=== PATIENT | male | born 1955 | race Caucasian/White ===

== ENCOUNTER → 2023-12-19 17:24 | Outpatient (REF) | payer OTHER, SELFPAY | LOC: RAD 17:24 | PROVIDERS: ATTENDING PHYSICIAN Nurse Practitioner Family | DX: R03.0 Elevated blood-pressure reading, without diagnosis of hypertension (principal); R07.89 Other chest pain | CPT/HCPCS: 71046 ==

== ENCOUNTER 2023-12-28 22:03 | Emergency (ER) | payer OTHER, SELFPAY ==
[2023-12-28 22:04] VITALS: BP 161/85
--- NOTE | 2023-12-28 22:55 | ED.GENMED ---
History of Present Illness
General
Chief Complaint: Rectal Bleeding
Source: patient
Exam Limitations: none
Time Seen by Provider: 12/28/23 22:42
Travel History
Have you had any contact with someone who has COVID-19?: No
Do you have any symptoms of coronavirus? Fever > 100 degrees, chills, cough, shortness of breath, sore throat, loss of taste or smell, muscle aches, or headache?: No
History of Present Illness
History of Present Illness:
68-year-old male 2 to 3 days of rectal bleeding. Bright red. Essentially with wiping. Stools themselves have been normal possibly slightly harder. No abdominal pain no fever no other complaints. No thinners.
Past History
Past History
ED Past Medical History: HTN and Other (diverticulitis); Negative CVA, Hypercholesterolemia, IDDM or NIDDM
ED Past Surgical History: Gynecological (right testicular surgery)
Social History
Tobacco: Non-smoker
Employment: Employed
Family History
Family History: Other (nephrolithiasis)
Review of Systems
Review of Systems
All Other Systems: Not applicable
Constitutional: Denies fever
Phy Exam
Physical Exam
Physical Exam:
Physical GENERAL: Alert and oriented in no apparent distress
EYE: Orbits normal.
CARDIAC: Regular rate and rhythm .
LUNGS: No respiratory distress.
ABDOMEN: Soft, without focal tenderness or distention small inflamed hemorrhoid painful but not actively bleeding. Full rectal exam without blood on the tip of the finger. Patient show the napkins that he had put between his buttocks with a very
small amount of blood.
NEUROLOGICAL: Alert and oriented , grossly non-focal
SKIN: Warm and dry
PSYCH: Normal and appropriate interaction.
Course
Orders/Labs/Results
Orders:
Orders
12/28/23 23:11
Complete Blood Count/With Diff Urgent
Comprehensive Metabolic Panel Urgent
Abnormal Lab Results
12/28/23
23:11
RBC 4.36 L 10^6/uL
(4.70-6.10)
Hgb 12.9 L g/dL
(13.0-18.0)
Hct 37.4 L %
(39.0-52.0)
Glucose 143 H mg/dl
(70-99)
12/28/23 23:11
12/28/23 23:11
Vital Signs
Initial and Last Documented VS:
Initial Vital Signs
Temp Pulse Resp BP Pulse Ox
97.9 F 75 18 161/85 96
12/28/23 22:04 12/28/23 22:04 12/28/23 22:04 12/28/23 22:04 12/28/23 22:04
Last Documented Vital Signs
Temp Pulse Resp BP Pulse Ox
97.9 F 75 18 161/85 96
12/28/23 22:04 12/28/23 22:04 12/28/23 22:04 12/28/23 22:04 12/28/23 22:04
*Critical Care Note
Total Time (30-74mins, 75-104mins- exclusive of procedures): Not Applicable
Update Note
Update Note:
Labs are stable. Patient is rocksolid stable. Tenderness to a hemorrhoid and inflamed appearing possible fissure. Discharged to follow-up
ED Attending Note
-
Portions of this chart may have been created with voice recognition software.� Occasional wrong word or��sound alike� substitutions may have occurred due to the inherent limitations of voice recognition software.
Discharge Plan
Departure
Patient Disposition: Home (Routine Discharge)
Date of Disposition: 12/29/23
Time of Disposition: 00:06
Patient with high blood pressure during this ER visit?: Yes
Discharge Problem:
Lower GI bleed, Bleeding hemorrhoid versus fissure
Instructions: Hemorrhoids (DC), Gastrointestinal Bleeding (DC), Anal Fissure (DC)
Prescriptions:
New
hydrocortisone [Anusol-HC] 2.5 % cream with perineal applicator
1 applic [place] DAILY Qty: 30 0RF
No Action
lisinopril 5 mg tablet
5 mg PO DAILY Qty: 30 0RF
amlodipine 2.5 mg tablet
2.5 mg PO DAILY
acetaminophen 500 mg Tablet
1,000 mg PO BID@0800,1500
cyanocobalamin (vitamin B-12) [Vitamin B-12] 500 mcg Tablet
500 mcg PO DAILY
ibuprofen 200 mg Tablet
600 mg PO BID@1200,1900
omeprazole 20 mg capsule,delayed release(DR/EC)
20 mg PO DAILY
rosuvastatin 10 mg tablet
10 mg PO QPM
Referrals:
Ez Hanosn MD [Active] - Follow up in 5-7 days
Regis Mccann CRNP [Family Provider] -
Activity Restrictions/Additional Instructions:
Apply cream daily
Follow-up closely with Dr. Hanson
Return sooner with increased bleeding increased pain or any other concerning symptoms
Interventions
Interventions:
*Risk Screen - Suicide Last Done: 12/28/23 22:04
*General Assessment Last Done: 12/28/23 22:04
*Neglect/Abuse Screening Last Done: 12/28/23 22:04
ED- Fall Risk Assessment Last Done: 12/28/23 23:35
*ED COVID-19 Vaccine History Last Done: 12/28/23 23:35
HU-Egytlh-Faawgcqyob Assessment Last Done: 12/28/23 23:19
ED- Cardiac Assessment Last Done: 12/28/23 23:19
ED- Pulmonary Assessment Last Done: 12/28/23 23:19
[2023-12-28 23:20] LABS: % Basophils 0.5 % (0-2); % Eosinophils 2.9 % (0-6); % Immature Granulocytes 0.1 % (0-0.5); % Lymphocytes 29.6 % (20.5-51.1); % Monocytes 5.6 % (1.7-9.3); % Neutrophils 61.3 % (42.2-75.2); Absolute Eosinophils 0.3 10^3/uL (0-0.7); Absolute Lymphocytes 2.6 10^3/uL (1.2-3.4); Absolute Monocytes 0.5 10^3/uL (0.1-0.6); Absolute Neutrophils 5.3 10^3/uL (1.4-6.5); Hematocrit 37.4 % (39.0-52.0); Hemoglobin 12.9 g/dL (13.0-18.0); Mean Corp Hgb Conc. 34.5 g/dL (33.0-37.0); Mean Corpuscular Hgb 29.6 pg (27.0-31.0); Mean Corpuscular Volume 85.8 fL (80.0-94.0); Mean Platelet Volume 9.7 fL (7.4-10.4); Nucleated Red Blood Cells % 0 % (-); Platelet Count 209 10^3/uL (130-400); Red Blood Cell Count 4.36 10^6/uL (4.70-6.10); Red Cell Dist. Width 13.2 % (11.5-14.5); White Blood Cell Count 8.6 10^3/uL (4.8-10.8)
[2023-12-28 23:47] LABS: ALT (SGPT) 19 U/L (0-50); AST (SGOT) 27 U/L (17-59); Alkaline Phosphatase 60 U/L (38-126); Blood Urea Nitrogen 20 mg/dl (9-20); Calcium 8.8 mg/dl (8.4-10.2); Carbon Dioxide 24 mmol/L (22-30); Chloride 105 mmol/L (98-107); Glucose 143 mg/dl (70-99); Potassium 3.9 mmol/L (3.5-5.1); Sodium 135 mmol/L (135-145); Total Bilirubin 0.5 mg/dl (0.2-1.3); Total Protein 6.6 g/dl (6.3-8.2); eGFR > 60.00
[2023-12-29 00:23] VITALS: BP 128/70
== END 2023-12-29 00:23 | disposition home or self-care (01) ==
LOC: EMR 22:03
PROVIDERS: EMERGENCY PHYSICIAN Emergency Medicine; FAMILY PHYSICIAN Nurse Practitioner Family
DX: K92.2 Gastrointestinal hemorrhage, unspecified (principal); K64.9 Unspecified hemorrhoids; I10 Essential (primary) hypertension
CPT/HCPCS: 99283; 80053; 85025

== ENCOUNTER → 2024-01-03 07:15 | Outpatient (REF) | payer OTHER, SELFPAY | LOC: RCS 07:15 | PROVIDERS: ATTENDING PHYSICIAN Nurse Practitioner Family | DX: R03.0 Elevated blood-pressure reading, without diagnosis of hypertension (principal); R07.89 Other chest pain | CPT/HCPCS: 93017 ==

== ENCOUNTER → 2024-01-12 08:20 | Outpatient (REF) | payer OTHER, SELFPAY | LOC: PAVMRI 08:20 | PROVIDERS: ATTENDING PHYSICIAN Student in an Organized Health Care Education/Training Program | DX: R29.898 Other symptoms and signs involving the musculoskeletal system (principal); M54.50 Low back pain, unspecified | CPT/HCPCS: 72148 ==

== ENCOUNTER 2024-03-11 11:38 | Emergency (ER) | payer OTHER, SELFPAY ==
[2024-03-11 11:39] VITALS: BP 149/79
[2024-03-11 12:08] VITALS: BMI 31.4
[2024-03-11 12:13] VITALS: BP 138/85
[2024-03-11] MEDS: NSS 1000 IV (12:20)
[2024-03-11] MEDS: TORADOL 15 MG IV (12:20)
--- NOTE | 2024-03-11 12:21 | ED.GENMED ---
History of Present Illness
General
Chief Complaint: Abdominal Pain
Source: patient, records and previous hospital records
Exam Limitations: none
Time Seen by Provider: 03/11/24 11:45
Travel History
Have you had any contact with someone who has COVID-19?: No
Do you have any symptoms of coronavirus? Fever > 100 degrees, chills, cough, shortness of breath, sore throat, loss of taste or smell, muscle aches, or headache?: No
History of Present Illness
History of Present Illness:
68-year-old male presents with left lower abdominal pain and urinary frequency onset 2 days ago tells me his symptoms are consistent with his prior diverticulitis he said 4-5 episodes previously told by Dr. Hanson he may need surgery if he has
another recurrence, had a colonoscopy in the last year had a polyp removed he is also been constipated, but also stool softeners, no antibiotic use, he is being worked up for neuropathy by his PCP multiple tasks have been obtained with no definitive
diagnosis he is on gabapentin for that does not appear to be on any blood thinners, is a nondrinker non-smoker
Past History
Past History
ED Past Medical History: HTN and Other (diverticulitis); Negative CVA, Hypercholesterolemia, IDDM or NIDDM
Social History
Tobacco: Non-smoker
Employment: Employed
Family History
Family History: Other (nephrolithiasis)
Phy Exam
Physical Exam
Physical Exam:
Physical Exam
General: no apparent distress, not acutely ill
Neck: No jaundice
Heart: s1/s2 regular rate and rhythm, no murmur. equal radial pulses.
Lungs: no acute respiratory distress. clear bilaterally
Abdomen: Soft mild left lower abdominal pain
Neuro: alert and oriented. no focal neurological deficits
Skin: no rash
Psychiatric: well kept. interactive and cooperative
Extremities: no edema. Lower extremities are warm well-perfused
Course
Orders/Labs/Results
Orders:
Orders
03/11/24 12:13
CT Abd/Pel (IV only)-DH only Urgent
Comment:
Reason For Exam: llq pain
03/11/24 12:14
0.9% Sodium Chloride 1000 ml [Nss] 1,000 ml IV BOLUS
Ketorolac [Toradol] 15 mg IV NOW STA
03/11/24 12:15
Complete Blood Count/With Diff Urgent
Comprehensive Metabolic Panel Urgent
Urinalysis Reflex To Culture Urgent
Date Specimen was Collected: 03/11/24
Time Specimen was Collected: 12:15
03/11/24 13:49
Amoxicillin 875 mg/Clav 125 mg [Augmentin 875 mg/125 mg] 1 tablet PO NOW STA
Abnormal Lab Results
03/11/24
12:15
WBC 11.6 H 10^3/uL
(4.8-10.8)
RBC 4.56 L 10^6/uL
(4.70-6.10)
Hct 38.3 L %
(39.0-52.0)
Abs Immat Gran (auto) 0.1 H 10^3/uL
(0-0.05)
Absolute Neuts (auto) 8.9 H 10^3/uL
(1.4-6.5)
Absolute Monos (auto) 0.8 H 10^3/uL
(0.1-0.6)
Neutrophils % 76.3 H %
(42.2-75.2)
Lymphocytes % 15.4 L %
(20.5-51.1)
Glucose 130 H mg/dl
(70-99)
03/11/24 12:15
03/11/24 12:15
Vital Signs
Initial and Last Documented VS:
Initial Vital Signs
Temp Pulse Resp BP Pulse Ox
98.7 F 85 18 149/79 98
03/11/24 11:39 03/11/24 11:39 03/11/24 11:39 03/11/24 11:39 03/11/24 11:39
Last Documented Vital Signs
Temp Pulse Resp BP Pulse Ox
98.7 F 85 18 138/85 94
03/11/24 11:39 03/11/24 11:39 03/11/24 11:39 03/11/24 12:13 03/11/24 12:30
MDM/Problems Addressed
Differential Diagnosis Includes:
Diverticulitis colitis UTI renal stone
MDM/Problems Addressed:
Left lower quadrant pain
Chronic conditions affecting care:
Diverticulitis
Acute Exacerbation and/or Progression of Chronic Illness:
Diverticulitis
*Radiology
Radiology exam reviewed: preliminary read by ED provider
*Pulse Oximetry
Patient hypoxic: no
*Machine Sorter Interpretation
Rate: Machine Sorter- N/A
*Critical Care Note
Total Time (30-74mins, 75-104mins- exclusive of procedures): Not Applicable
Data Reviewed
Review of Other/Old Records Reveals: Labs and Records
Source: patient and records
Update Note
Update Note:
1:48 PM patient appears well CAT scan noted, appears to be candidate for outpatient follow-up start on antibiotics
Is having what sounds like some subacute to chronic neuropathy, will hold on quinolones, go with a penicillin
ED Attending Note
-
Portions of this chart may have been created with voice recognition software.� Occasional wrong word or��sound alike� substitutions may have occurred due to the inherent limitations of voice recognition software.
Discharge Plan
Departure
Patient Disposition: Home (Routine Discharge)
Date of Disposition: 03/11/24
Time of Disposition: 13:50
Patient with high blood pressure during this ER visit?: No
Condition: Good
Covid-19: Not Applicable
Discharge Problem:
Acute diverticulitis
Instructions: Diverticulitis (DC)
Prescriptions:
New
amoxicillin-pot clavulanate 875-125 mg tablet
1 tab PO BID Qty: 20 0RF
No Action
lisinopril 5 mg tablet
5 mg PO DAILY Qty: 30 0RF
amlodipine 2.5 mg tablet
2.5 mg PO DAILY
acetaminophen 500 mg Tablet
1,000 mg PO BID@0800,1500
cyanocobalamin (vitamin B-12) [Vitamin B-12] 500 mcg Tablet
500 mcg PO DAILY
ibuprofen 200 mg Tablet
600 mg PO BID@1200,1900
omeprazole 20 mg capsule,delayed release(DR/EC)
20 mg PO DAILY
rosuvastatin 10 mg tablet
10 mg PO QPM
hydrocortisone [Anusol-HC] 2.5 % cream with perineal applicator
1 applic [place] DAILY Qty: 30 0RF
Referrals:
Ez Hanson MD [Active] - Next open appointment
Regis Mccann CRNP [Family Provider] -
Activity Restrictions/Additional Instructions:
[place] diet nothing fatty or spicy antibiotics as prescribed with Dr. Hanson
Return to the ER for worsening symptoms
Interventions
Interventions:
*Risk Screen - Suicide Last Done: 03/11/24 11:39
*General Assessment Last Done: 03/11/24 11:39
*Neglect/Abuse Screening Last Done: 03/11/24 11:39
ED- Fall Risk Assessment Last Done: 03/11/24 12:08
*ED COVID-19 Vaccine History Last Done: 03/11/24 11:39
QI-Fgnxup-Cftvgdxuzo Assessment Last Done: 03/11/24 12:08
Discharge Date and Time
Print Language: QATARI
[2024-03-11 12:29] LABS: % Basophils 0.5 % (0-2); % Eosinophils 0.9 % (0-6); % Immature Granulocytes 0.4 % (0-0.5); % Lymphocytes 15.4 % (20.5-51.1); % Monocytes 6.5 % (1.7-9.3); % Neutrophils 76.3 % (42.2-75.2); Absolute Basophils 0.1 10^3/uL (0-0.2); Absolute Eosinophils 0.1 10^3/uL (0-0.7); Absolute Immature Granulocytes 0.1 10^3/uL (0-0.05); Absolute Lymphocytes 1.8 10^3/uL (1.2-3.4); Absolute Monocytes 0.8 10^3/uL (0.1-0.6); Absolute Neutrophils 8.9 10^3/uL (1.4-6.5); Hematocrit 38.3 % (39.0-52.0); Hemoglobin 13.6 g/dL (13.0-18.0); Mean Corp Hgb Conc. 35.5 g/dL (33.0-37.0); Mean Corpuscular Hgb 29.8 pg (27.0-31.0); Mean Platelet Volume 9.7 fL (7.4-10.4); Nucleated Red Blood Cells % 0 % (-); Platelet Count 214 10^3/uL (130-400); Red Blood Cell Count 4.56 10^6/uL (4.70-6.10); Red Cell Dist. Width 12.6 % (11.5-14.5); White Blood Cell Count 11.6 10^3/uL (4.8-10.8)
[2024-03-11 12:50] LABS: ALT (SGPT) 11 U/L (0-50); AST (SGOT) 20 U/L (17-59); Albumin 4.5 g/dl (3.5-5.0); Alkaline Phosphatase 65 U/L (38-126); Blood Urea Nitrogen 14 mg/dl (9-20); Calcium 9.3 mg/dl (8.4-10.2); Carbon Dioxide 24 mmol/L (22-30); Chloride 104 mmol/L (98-107); Estimated Creatinine Clearance 109 ml/min; Glucose 130 mg/dl (70-99); Potassium 4.1 mmol/L (3.5-5.1); Sodium 136 mmol/L (135-145); Total Bilirubin 0.8 mg/dl (0.2-1.3); eGFR > 60.00
[2024-03-11 13:00] VITALS: BP 132/75
[2024-03-11 13:05] LABS: Urine Albumin Negative (Neg - Trace); Urine Bilirubin Negative (Negative); Urine Character Clear (Clear); Urine Color Yellow; Urine Glucose Negative (Negative); Urine Ketone Negative (Negative); Urine Leukocyte Negative (Negative); Urine Nitrite Negative (Negative); Urine Occult Blood Negative (Negative); Urine Urobilinogen Negative (Neg - 1+)
[2024-03-11] MEDS: AUGMENTIN 875 MG/125 MG 1 TABLET PO (13:52)
== END 2024-03-11 13:59 | disposition home or self-care (01) ==
LOC: EMR 11:38
PROVIDERS: EMERGENCY PHYSICIAN Emergency Medicine; FAMILY PHYSICIAN Nurse Practitioner Family
DX: K57.32 Diverticulitis of large intestine without perforation or abscess without bleeding (principal); R35.0 Frequency of micturition; K59.00 Constipation, unspecified; I10 Essential (primary) hypertension
CPT/HCPCS: 99285; 74177; 80053; 81003; 85025; Q9967

== ENCOUNTER 2024-06-14 11:14 | Inpatient (IN) | payer OTHER, MEDICARE, SELFPAY ==
[2024-06-06 10:24] LABS: % Basophils 0.7 % (0-2); % Eosinophils 3.2 % (0-6); % Immature Granulocytes 0.3 % (0-0.5); % Lymphocytes 29.4 % (20.5-51.1); % Monocytes 6.9 % (1.7-9.3); % Neutrophils 59.5 % (42.2-75.2); Absolute Basophils 0.1 10^3/uL (0-0.2); Absolute Eosinophils 0.2 10^3/uL (0-0.7); Absolute Monocytes 0.5 10^3/uL (0.1-0.6); Absolute Neutrophils 4.1 10^3/uL (1.4-6.5); Hematocrit 37.7 % (39.0-52.0); Hemoglobin 13.1 g/dL (13.0-18.0); Mean Corp Hgb Conc. 34.7 g/dL (33.0-37.0); Mean Corpuscular Hgb 29.8 pg (27.0-31.0); Mean Corpuscular Volume 85.9 fL (80.0-94.0); Mean Platelet Volume 10.1 fL (7.4-10.4); Nucleated Red Blood Cells % 0 % (-); Platelet Count 197 10^3/uL (130-400); Red Blood Cell Count 4.39 10^6/uL (4.70-6.10); Red Cell Dist. Width 12.7 % (11.5-14.5); White Blood Cell Count 6.9 10^3/uL (4.8-10.8)
[2024-06-06 10:33] VITALS: BMI 32.1
[2024-06-06 10:42] LABS: INR 1.02; PT 13.4 Sec (11.4-14.6)
[2024-06-06 10:43] LABS: APTT 29.4 Sec (23.4-35.0)
[2024-06-06 11:24] LABS: ALT (SGPT) 14 U/L (0-50); AST (SGOT) 23 U/L (17-59); Albumin 4.6 g/dl (3.5-5.0); Alkaline Phosphatase 57 U/L (38-126); Blood Urea Nitrogen 16 mg/dl (9-20); Calcium 9.3 mg/dl (8.4-10.2); Carbon Dioxide 25 mmol/L (22-30); Chloride 104 mmol/L (98-107); Estimated Creatinine Clearance 97 ml/min; Glucose 90 mg/dl (70-99); Potassium 4.7 mmol/L (3.5-5.1); Sodium 138 mmol/L (135-145); Total Bilirubin 0.7 mg/dl (0.2-1.3); Total Protein 6.9 g/dl (6.3-8.2); eGFR > 60.00
[2024-06-06 12:06] LABS: Glycohemoglobin (HgbA1c) 5.6 % (4.0-5.6)
[2024-06-14] VITALS (13 sets, daily range): BP systolic 134–151; BP diastolic 71–87; BMI 32.1
[2024-06-14] MEDS: TYLENOL 1000 MG PO (11:45)
[2024-06-14] MEDS: HEPARIN 5000 UNITS SC (11:45)
[2024-06-14] MEDS: ENTEREG 12 MG PO (11:45)
[2024-06-14] MEDS: NORMOSOL-R 1000 IV (11:46)
--- NOTE | 2024-06-14 16:23 | W.IMMPOSTOP ---
Surgical Immed Post Op Note
-
Primary Surgeon: Frankie Hanson MD
Polls Or Surveys Interviewer: RIDDHI Islas
Pre-op Diagnosis: Recurrent sigmoid diverticulitis, umbilical hernia
Post-op Diagnosis: Same
Procedure Performed: Robotic sigmoid colectomy and primary repair of hernia
Anesthesia Type: GET
Specimen / Cultures: Sigmoid colon (suture is proximal)
Estimated Blood Loss: 15cc
Complications: None
Operative Findings: Chronic sigmoid diverticulitis
28mm EEA intracorporeal anastomosis
Normal leak test
Primary repair of umbilical hernia
Patient's updated.
[2024-06-14 16:37] LABS: Glucose - Point of Care 135 mg/dl (70-99)
[2024-06-14] MEDS: TORADOL 15 MG IV ×2 (17:49→23:01)
--- NOTE | 2024-06-14 18:24 | PTCARENOTE ---
Received patient form PACU via bed in stable condition. Patient very sleepy but arousable. Urinary Catheter in place draining clear yellow urine. 5 abd lap sites CDI with surgical adhesive. Call joseph in reach.
[2024-06-14] MEDS: TYLENOL 650 MG PO (20:16)
[2024-06-14] MEDS: CRESTOR 10 MG PO (21:21)
[2024-06-14] MEDS: NEURONTIN 300 MG PO (21:21)
[2024-06-15] MEDS: NORMOSOL-R IV (00:54)
[2024-06-15] MEDS: TYLENOL PO ×3 (00:54→23:40)
[2024-06-15] MEDS: NORMOSOL-R 1000 IV ×3 (02:24→23:35)
[2024-06-15 03:47] VITALS: BP 136/80
[2024-06-15] MEDS: TORADOL 15 MG IV ×4 (04:52→23:35)
[2024-06-15 05:19] VITALS: BMI 30.1
[2024-06-15 07:33] LABS: % Basophils 0.1 % (0-2); % Eosinophils 0.1 % (0-6); % Immature Granulocytes 0.4 % (0-0.5); % Lymphocytes 8.1 % (20.5-51.1); % Monocytes 7.4 % (1.7-9.3); % Neutrophils 83.9 % (42.2-75.2); Absolute Lymphocytes 0.9 10^3/uL (1.2-3.4); Absolute Monocytes 0.8 10^3/uL (0.1-0.6); Hematocrit 34.5 % (39.0-52.0); Hemoglobin 12.3 g/dL (13.0-18.0); Mean Corp Hgb Conc. 35.7 g/dL (33.0-37.0); Mean Corpuscular Hgb 30.3 pg (27.0-31.0); Mean Platelet Volume 10.2 fL (7.4-10.4); Nucleated Red Blood Cells % 0.2 % (-); Platelet Count 196 10^3/uL (130-400); Red Blood Cell Count 4.06 10^6/uL (4.70-6.10); Red Cell Dist. Width 12.9 % (11.5-14.5); White Blood Cell Count 10.7 10^3/uL (4.8-10.8)
[2024-06-15 07:40] VITALS: BP 134/83
[2024-06-15 07:49] LABS: Blood Urea Nitrogen 15 mg/dl (9-20); Calcium 8.2 mg/dl (8.4-10.2); Carbon Dioxide 25 mmol/L (22-30); Chloride 103 mmol/L (98-107); Estimated Creatinine Clearance 84 ml/min; Glucose 142 mg/dl (70-99); Potassium 4.6 mmol/L (3.5-5.1); Sodium 135 mmol/L (135-145); eGFR > 60.00
[2024-06-15] MEDS: TYLENOL 650 MG PO ×4 (08:07→19:47)
[2024-06-15] MEDS: PROTONIX 40 MG PO (08:08)
[2024-06-15] MEDS: ZESTRIL 5 MG PO (08:08)
[2024-06-15] MEDS: NORVASC 2.5 MG PO (08:08)
[2024-06-15] MEDS: ENTEREG 12 MG PO ×2 (08:08→19:47)
--- NOTE | 2024-06-15 11:40 | CM ---
Reviewed the chart notes and spoke with the patient at the bedside. The patient resides with his spouse in a one story ira with one step to enter. The patient reports on DME is a BP machine. The patient reports no VN or SNF in past. The patient
confirmed his pharmacy of choice is the [facility]. CM continues to be available to patient/family and is monitoring medical plan for needs at discharge.
Plan: Discharge to home with no anticipated needs.
[2024-06-15 11:49] VITALS: BP 102/62
--- NOTE | 2024-06-15 12:10 | W.PN.GS2 ---
Addendum entered and electronically signed by Freddy Ibanez MD 06/15/24 14:50:
Patient seen and examined this a.m. with nurse practitioner. Agree with documented progress note. This is a delayed entry.
Patient complains of significant cramping left side of abdomen postoperatively. A bit more this morning than initially overnight. No nausea. Not much appetite. Still feels a bit sleepy from anesthesia/surgery.
AFVSS
ABD: Protuberant and a bit distended, some tympany. Mild tenderness on palpation. Surgical sites with glue dressings.
A/P: POD #1 status post RAL sigmoid colectomy
Holding diet on sips of clears and ice chips as a bit distended on exam
Continue routine postoperative supportive care
Original Note:
Today's Communication / Plan
-
NPO with sips of clears
Assessment / Plan
-
69 yo male with a h/o recurrent sigmoid diverticulitis who presented for operative management and is POD #1 robotic sigmoid colectomy with primary UHR
AFVSS
Labs stable post operatively
Await ROBF
--NPO with sips of clears
--Analgesics scheduled and prn
--OOB/Ambulate
--SCDs and lovenox for VTE ppx
--C/W IVF while NPO
--C/W home meds
Subjective Data
-
Date of Service: June 15, 2024
Patient seen and examined at bedside with Dr. Ibanez. Having cramping pains with no passage of flatus as of yet. Denies n/v.
Objective Data
-
Intake and Output
06/14/24 06/15/24 06/16/24
06:59 06:59 06:59
Intake Total 2260 / 2260
Output Total 975 / 975
Balance 1285 / 1285
Intake:
Oral fluids 960 / 960
IV fluids (Total) 1300 / 1300
normosol 100 / 100
Output:
Urine, Lane 975 / 975
Vital Signs
Temp Pulse Resp BP Pulse Ox
97.6 F 60 17 102/62 97
06/15/24 11:49 06/15/24 11:49 06/15/24 11:49 06/15/24 11:49 06/15/24 11:49
Lab Results
06/15/24 07:09
06/15/24 07:09
Calcium 8.2 mg/dl (8.4-10.2) L 06/15/24 07:09
Total Bilirubin 0.7 mg/dl (0.2-1.3) 06/06/24 08:57
AST 23 U/L (17-59) 06/06/24 08:57
ALT 14 U/L (0-50) 06/06/24 08:57
Alkaline Phosphatase 57 U/L (38-126) 06/06/24 08:57
Total Protein 6.9 g/dl (6.3-8.2) 06/06/24 08:57
Albumin 4.6 g/dl (3.5-5.0) 06/06/24 08:57
Physical Exam
-
NAD
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
Incisions well approximated with intact glue
Lane with clear, yellow urine
[2024-06-15 16:05] VITALS: BP 120/46
[2024-06-15] MEDS: LOVENOX 40 MG SC (17:01)
[2024-06-15] MEDS: DILAUDID 0.5 MG IV (20:23)
[2024-06-15] MEDS: MYLICON 80 MG PO (21:16)
[2024-06-15] MEDS: CRESTOR 10 MG PO (21:46)
[2024-06-15] MEDS: NEURONTIN 300 MG PO (21:46)
[2024-06-15 23:00] VITALS: BP 158/85
[2024-06-16] MEDS: MYLICON 80 MG PO (00:08)
[2024-06-16] MEDS: TYLENOL PO (04:00)
[2024-06-16] MEDS: TORADOL 15 MG IV ×4 (05:20→22:06)
[2024-06-16 06:19] VITALS: BMI 31.8
--- NOTE | 2024-06-16 06:30 | PTCARENOTE ---
dotson removed @ 0530 voided small amount of urine @8780. Bmx x2 this shift.
[2024-06-16] MEDS: ENTEREG 12 MG PO (07:13)
[2024-06-16] MEDS: TYLENOL 650 MG PO ×4 (07:13→20:38)
[2024-06-16] MEDS: PROTONIX 40 MG PO (07:13)
[2024-06-16] MEDS: ZESTRIL 5 MG PO (07:13)
[2024-06-16] MEDS: NORVASC 2.5 MG PO (07:17)
[2024-06-16 07:18] VITALS: BP 145/74
[2024-06-16 08:26] LABS: Hematocrit 35.3 % (39.0-52.0); Hemoglobin 12.1 g/dL (13.0-18.0); Mean Corp Hgb Conc. 34.3 g/dL (33.0-37.0); Mean Corpuscular Hgb 29.7 pg (27.0-31.0); Mean Corpuscular Volume 86.7 fL (80.0-94.0); Mean Platelet Volume 10.2 fL (7.4-10.4); Platelet Count 198 10^3/uL (130-400); Red Blood Cell Count 4.07 10^6/uL (4.70-6.10); Red Cell Dist. Width 12.9 % (11.5-14.5); White Blood Cell Count 10.7 10^3/uL (4.8-10.8)
--- NOTE | 2024-06-16 08:43 | W.PN.GS2 ---
Addendum entered and electronically signed by Freddy Ibanez MD 06/16/24 09:05:
Patient seen and examined with nurse practitioner. Agree with documented progress note
He appears much more comfortable today
Mild left-sided gas cramps
Passing flatus and multiple loose bowel movements
Appetite returning, nausea subsided
AFVSS
ABD: Soft, nondistended, minimal tenderness at incision sites, incisions with glue dressings, no erythema, no drainage, no open wounds
Assessment/plan: POD #2 s/p robotic sigmoidectomy
Clear liquids and advance cautiously as tolerated
Multimodal analgesics
Home meds
Stop Entereg given return of GI function
Original Note:
Today's Communication / Plan
-
Trial of clear liquids then ADAT
Assessment / Plan
-
69 yo male with a h/o recurrent sigmoid diverticulitis who presented for operative management and is POD #2 robotic sigmoid colectomy with primary UHR
AFVSS
Labs stable post operatively, BMP pending for today
Mild acute anemia secondary to hemodilution/expected intraop losses. Stable from previous.
Bowel function returning with +flatus/BM's
--ADAT, start with clears
--Analgesics scheduled and prn. Tylenol, Toradol, Tramadol, dilaudid
--OOB/Ambulate
--SCDs and lovenox for VTE ppx
--C/C IVF
--C/W home meds
Subjective Data
-
Date of Service: June 16, 2024
Patient seen and examined at bedside with Dr. Ibanez. OOB to chair. Notes he feels much better today. Cramping pain resolved overnight when he was able to pass quite a bit of flatus and some loose stools. Denies significant pain. Voiding without
difficulty since removal of dotson.
Objective Data
-
Intake and Output
06/15/24 06/16/24 06/17/24
06:59 06:59 06:59
Intake Total 2260 / 2260 1610 / 1610
Output Total 975 / 975 2300 / 2300
Balance 1285 / 1285 -690 / -690
Intake:
Oral fluids 960 / 960 360 / 360
IV fluids (Total) 1300 / 1300 1250 / 1250
normosol 100 / 100
Output:
Urine, [place] 975 / 975 2300 / 2300
Other:
Number of approximated SMALL 1
amounts of urine
Number of approximated MODERATE 1
amounts of urine
Number of unmeasured liquid
stools
Rectum 1
Vital Signs
Temp Pulse Resp BP Pulse Ox
97.9 F 66 16 145/74 96
06/16/24 07:18 06/16/24 07:18 06/16/24 07:18 06/16/24 07:18 06/16/24 07:18
Lab Results
06/16/24 06:40
Calcium 8.2 mg/dl (8.4-10.2) L 06/15/24 07:09
Total Bilirubin 0.7 mg/dl (0.2-1.3) 06/06/24 08:57
AST 23 U/L (17-59) 06/06/24 08:57
ALT 14 U/L (0-50) 06/06/24 08:57
Alkaline Phosphatase 57 U/L (38-126) 06/06/24 08:57
Total Protein 6.9 g/dl (6.3-8.2) 06/06/24 08:57
Albumin 4.6 g/dl (3.5-5.0) 06/06/24 08:57
Physical Exam
-
NAD
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
Incisions well approximated with intact glue
[2024-06-16] MEDS: NORMOSOL-R IV (08:46)
[2024-06-16 08:57] LABS: Blood Urea Nitrogen 18 mg/dl (9-20); Calcium 8.5 mg/dl (8.4-10.2); Carbon Dioxide 25 mmol/L (22-30); Chloride 105 mmol/L (98-107); Estimated Creatinine Clearance 96 ml/min; Glucose 94 mg/dl (70-99); Sodium 136 mmol/L (135-145); eGFR > 60.00
[2024-06-16 15:02] VITALS: BP 124/74
[2024-06-16] MEDS: LOVENOX 40 MG SC (17:31)
[2024-06-16] MEDS: CRESTOR 10 MG PO (22:06)
[2024-06-16] MEDS: NEURONTIN 300 MG PO (22:06)
[2024-06-16 23:00] VITALS: BP 122/77
[2024-06-17] MEDS: TYLENOL 650 MG PO ×3 (00:07→08:28)
[2024-06-17] MEDS: TORADOL 15 MG IV (05:01)
[2024-06-17 06:29] VITALS: BMI 31.7
[2024-06-17 07:32] VITALS: BP 139/75
[2024-06-17] MEDS: PROTONIX 40 MG PO (08:28)
[2024-06-17] MEDS: ZESTRIL 5 MG PO (08:29)
[2024-06-17] MEDS: NORVASC 2.5 MG PO (08:29)
--- NOTE | 2024-06-17 08:52 | W.PN.CRS1 ---
Today's Communication / Plan
-
Ok for discharge.
I reviewed diet, meds, activity, wound care and follow-up.
Final path pending.
Assessment/Plan
-
POD#3 s/p robotic sigmoidectomy for recurrent diverticulitis, and umbilical hernia repair
Progressing well.
Operative findings reviewed.
Subjective Data
Procedure
06/14/24 Robotic sigmoidectomy and umbilical hernia repair
Subjective Data
Date of Service: June 17, 2024
No complaints. He is tolerating a low residue diet and his bowels are functioning. Minimal discomfort.
Objective Data
-
Vital Signs
Temp Pulse Resp BP Pulse Ox
97.8 F 52 16 139/75 95
06/17/24 07:32 06/17/24 07:32 06/17/24 07:32 06/17/24 07:32 06/17/24 07:32
Intake & Output
06/16/24 06/17/24 06/18/24
06:59 06:59 06:59
Intake Total 1610 / 1610 2160 / 2160
Output Total 2300 / 2300
Balance -690 / -690 2160 / 2160
Intake:
Oral fluids 360 / 360 2160 / 2160
IV fluids (Total) 1250 / 1250
Output:
Urine, Lane 2300 / 2300
Other:
Number of approximated SMALL 1
amounts of urine
Number of approximated MODERATE 1 2
amounts of urine
Number of unmeasured liquid
stools
Rectum 1
Lab Results
06/16/24 06:40
06/16/24 06:40
Physical Exam
-
General: No Acute Distress
Abdomen: Soft, Non Distended and Non Tender
Extremities: No Calf Tenderness
Incision: Clear, Dry, Intact
--- NOTE | 2024-06-17 09:03 | W.DS.TRANS ---
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
-
Discharge Instructions:
Sleep Apnea Risk Intermediate
Discharge Diagnosis/Procedures Robotic sigmoid resection and umbilical hernia
repair
Diet Low Residue
Activity As tolerated,No strenuous activity
Additional Activity No heavy lifting (<20lbs) for 4 weeks
Driving Restrictions No driving for 1 week
Bathing Restrictions OK to Shower
Wound Care the glue will fall off typically in 2-3 weeks
Instructions:
Stand-Alone Forms:
Changes to Home Medications: No
Discharge Medications:
DC Medications w/original date entered in Jam[facility]
lisinopril 5 mg tablet 5 mg PO DAILY #30 tabs 11/10/23
acetaminophen 500 mg tablet 1,000 mg PO PRN PRN pain 12/28/23
amlodipine 2.5 mg tablet 2.5 mg PO DAILY Blood Pressure 12/28/23
cyanocobalamin (vitamin B-12) 500 mcg tablet (Vitamin B-12) 500 mcg PO DAILY Supplement 12/28/23
ibuprofen 200 mg tablet 600 mg PO PRN PRN pain 12/28/23
omeprazole 20 mg capsule,delayed release 20 mg PO DAILY Gastrointestinal Issue 12/28/23
rosuvastatin 10 mg tablet 10 mg PO HS High Cholesterol 12/28/23
hydrocortisone 2.5 % topical cream with perineal applicator (Anusol-HC) 1 applic [place] DAILY #30 grams 12/29/23
gabapentin 300 mg capsule 300 mg PO HS Neurological Condition 06/03/24
hydrocortisone 1 % topical cream 1 applic topical PRN PRN eczema 06/03/24
psyllium 1 packet PO DAILY Constipation 06/03/24
triamcinolone acetonide 0.1 % topical cream 1 applic topical PRN PRN eczema 06/03/24
tramadol 50 mg tablet 50 mg PO Q8H PRN Pain #20 tabs 06/17/24
Home Medication Changes
Pending Results: Yes
Additional Pending Results:
pathology
--- NOTE | 2024-06-17 09:42 | CM ---
Patient seen at bedside. Patient standing up and complaining of being bored. Patient for discharge home today with no needs per chart review. Patient reviewed and completed IMM form, signed form placed on chart. Patient stated that he was planning
to go home with his and had no concerns at this time. CM will continue to follow for discharge planning needs.
Plan; home with no needs anticipated.
== END 2024-06-17 10:18 | disposition home or self-care (01) | DRG 330 ==
LOC: 2 SOUTH 11:14
PROVIDERS: Registered Nurse; ADMITTING PHYSICIAN Surgery; FAMILY PHYSICIAN Nurse Practitioner Family
PROC: 8E0W8CZ Robotic Assisted Procedure of Trunk Region, Via Natural or Artificial Opening Endoscopic (ICD-10-PCS; 2024-06-14)
PROC: 0WQF4ZZ Repair Abdominal Wall, Percutaneous Endoscopic Approach (ICD-10-PCS; 2024-06-14)
PROC: 0DJD8ZZ Inspection of Lower Intestinal Tract, Via Natural or Artificial Opening Endoscopic (ICD-10-PCS; 2024-06-14)
PROC: 4A1BXSH Monitoring of Gastrointestinal Vascular Perfusion using Indocyanine Green Dye, External Approach (ICD-10-PCS; 2024-06-14)
PROC: 0DTNFZZ Resection of Sigmoid Colon, Via Natural or Artificial Opening With Percutaneous Endoscopic Assistance (ICD-10-PCS; 2024-06-14)
DX: K57.32 Diverticulitis of large intestine without perforation or abscess without bleeding (principal); Q43.8 Other specified congenital malformations of intestine; K42.9 Umbilical hernia without obstruction or gangrene; D64.89 Other specified anemias; E78.00 Pure hypercholesterolemia, unspecified; G62.9 Polyneuropathy, unspecified; M54.50 Low back pain, unspecified; I87.2 Venous insufficiency (chronic) (peripheral); Z79.899 Other long term (current) drug therapy
CPT/HCPCS: 88307; 36415; 80048; 80053; 82962; 83036; 85025; 85027; 85610; 85730; 86850; 86900; 86901; 93005; J1335